=== PATIENT | female | born 2000 | race Caucasian/White ===

== ENCOUNTER 2024-01-26 18:13 | Emergency (ER) | payer BC, SELFPAY ==
[2024-01-26 18:15] VITALS: BP 140/74; PULSE 83; RESP 18; TEMP 36.8; O2SAT 100; BMI 24.7
--- NOTE | 2024-01-26 18:42 | ED_ITS ---
<Statement entered by Monik Garcia DO - 01/26/24 19:15> I was consulted by the MATILDE, and we discussed the complexity of the problems being addressed. I approved the treatment and management plan for this patient's care in the emergency department, thus performing a substantive portion of the medical decision making. Monik Garcia DO Discharge Plan Disposition Patient Disposition: Home, Self-Care Condition: Good Referrals Follow up/Referrals: Gonzalez Crane MD [Physician] - See instructions (Tonsillar pit impaction) La Nena Camarena MD [Primary Care Provider] - See instructions Activity Restrictions/Add. Instructions Additional Instructions/Restrictions: Please call in the morning to make an appointment. Return to ER for any worsening signs or symptoms as needed Clinical Impressions Clinical Impression: Symptomatic tonsillar crypt Discharge ED Provider: Monik Garcia General Adult HPI General Chief complaint: Dental/Oral Stated complaint: Tonsil Stone Time Seen by Provider: 01/26/24 18:23 Mode of Arrival: Ambulatory Source of Information: Patient Limitations: No Limitations Description of Symptoms (Recalled from ER Triage Doc. by RN): tonsil stone History of Present Illness HPI narrative: Patient presents for evaluation of a tonsillar stone. Patient has longstanding history of tonsillar hyperplasia with multiple episodes of strep throat pharyngitis and tonsillar crypt impaction. Patient was recently seen by her PCP and referred to ENT however she presented to the emergency department today for us to remove the tonsillar stone. She denies chest pain fever chills hemoptysis hematochezia melena nausea vomiting diarrhea. [facility] Disclaimer: The information contained in this section may have been updated after the patient was seen, as this information can be updated by other users. Social History (Updated 01/26/24 @ 18:58 by ELICIA Simpson) Smoking Status: Never smoker alcohol intake: never current occupational status: employed Travel in the last 8 weeks: None ROS Obtained: Yes Systems reviewed as appropriate & no additional complaints except as documented Physical Exam General General appearance: alert and in no apparent distress ENT ENT exam: Present normal exam, normal oropharynx, mucous membranes moist and other (Patient has a right tonsil cryptic that is impacted with food. I have removed the visible portion that I can reach with the tools that I have however there remains a considerable amount still impacted in the crypts.) Respiratory Respiratory exam: Present normal lung sounds bilaterally Cardiovascular Cardiovascular exam: Present regular rate and normal rhythm Neurological Exam Neurological exam: Present alert and oriented X3 Medical Decision Making Neo Inquiry Pt receiving controlled substance: No Vital Signs: 01/26/24 18:15 01/26/24 18:55 Temperature 98.3 F 98.3 F Temperature Source Oral Pulse Rate 83 Pulse Rate [Left] 83 Respiratory Rate 18 18 Blood Pressure 140/74 Blood Pressure [Left Arm] 140/74 Blood Pressure Mean [Left Arm] 96 02 Sat by Pulse Oximetry 100 Oxygen Delivery Method Room Air Room Air Medical Decision Narrative: In summary patient is a 23-year-old female who presents to the emergency department for evaluation of impacted tonsillar crypt. Patient is hemodynamically stable upon arrival, afebrile. Physical exam shows a food impaction in the right tonsillar crypt. Differential diagnosis includes abscess versus hard and stone versus food impaction. Patient has no evidence of erythema or exudate thus further workup is deferred. I attempted to manually disimpact her tonsillar crypt with tongue blade and a Q-tip however food impaction is too deep and patient's gag reflex is too strong for me to overcome. Will refer to ear nose and throat for further evaluation. Given this patient is propria for discharge Critical Care Critical Care Time Critical Care Time: No
[2024-01-26 18:55] VITALS: BP 140/74; PULSE 83; RESP 18; TEMP 36.8; O2SAT 100
== END 2024-01-26 18:56 | disposition home or self-care (01) ==
PROVIDERS: Emergency Provider Emergency Medicine; PCP Family Medicine Addiction Medicine
DX: J35.8 Other chronic diseases of tonsils and adenoids (principal)
CPT/HCPCS: 99282

== ENCOUNTER 2024-03-24 20:24 | Emergency (ER) | payer BC, SELFPAY ==
[2024-03-24 20:25] VITALS: BP 131/87; RESP 18; TEMP 36.8; O2SAT 98; BMI 28.0
--- NOTE | 2024-03-24 20:48 | ED_ITS ---
Discharge Plan Disposition Patient Disposition: Home, Self-Care Prescriptions Prescriptions: No Action venlafaxine 75 mg capsule,extended release 24hr PO Patient Comments: Take 1 capsule by mouth every night at bedtime venlafaxine 37.5 mg capsule,extended release 24hr 37.5 mg PO DAILY Patient Comments: Take 1 capsule by mouth every night at bedtime Referrals Follow up/Referrals: La Nena Camarena MD [Primary Care Provider] - See instructions Activity Restrictions/Add. Instructions Additional Instructions/Restrictions: Your COVID flu and strep tests were all negative. Your symptoms are consistent with a viral pharyngeal tonsillitis. As discussed no indication for antibiotics to treat bacterial infection at the moment. You been given long-acting steroids you should continue to take ibuprofen you may take 600 mg 3 times a day as needed with food may also take 1000 mg of Tylenol 3 times a day if you need to for symptoms. Keep your follow-up appointment with your nose and throat doctor and return with any significant worsening symptoms. Clinical Impressions Clinical Impression: Pharyngotonsillitis Print Language Print Language: Citizen Of [place] Discharge ED Provider: Bertha Dennis General Adult HPI General Chief complaint: Dental/Oral Stated complaint: sore throat Time Seen by Provider: 03/24/24 20:42 Mode of Arrival: Ambulatory Source of Information: Patient Limitations: No Limitations Description of Symptoms (Recalled from ER Triage Doc. by RN): Patient reports left tonsil pain that started 2-3 days ago. Denies body aches, denies fevers. Scheduled to have surgery to remove tonsils on the . Patient reports pain 7/10 to left throat. History of Present Illness HPI narrative: Patient is a 23-year-old female presenting with multiple complaints. She states that she has a history of extensive and recurrent tonsillitis and is scheduled to get her tonsils removed on April 13. Evin. She was recently in the emergency department with a tonsillar crypt stone that was removed. States over the last Karmen days she has had worsening left-sided throat/tonsil pain left- sided neck pain and left ear pain. Denies any fevers or chills any other symptoms. Denies any other significant past medical history. Related Data Home Medications ?Medication ?Instructions ?Recorded ?Confirmed venlafaxine 37.5 mg 37.5 mg PO DAILY 01/27/24 01/27/24 capsule,extended release 24 hr venlafaxine 75 mg capsule,extended mg PO 01/27/24 01/27/24 release 24 hr Allergies Allergy/AdvReac Type Severity Reaction Status Date / Time codeine Allergy Mild Verified 01/27/24 12:11 [facility] Disclaimer: The information contained in this section may have been updated after the patient was seen, as this information can be updated by other users. Medical History (Updated 03/24/24 @ 20:47 by Bertha Dennis MD) Recurrent streptococcal tonsillitis Social History (Updated 01/27/24 @ 12:12 by ERICKA Perez) Smoking Status: Current every day smoker smoking status start date: Pt vapes alcohol intake: never current occupational status: employed Travel in the last 8 weeks: None ROS Obtained: Yes All systems reviewed & no additional complaints except as documented Physical Exam General General appearance: alert and in no apparent distress ENT ENT exam: Present TM's normal bilaterally and other (Very mild erythema in the left posterior pharynx and tonsillar region no significant tonsillar swelling exudates trismus asymmetry in the soft tissues etc. no trismus soft tissue the neck is also normal no significant lymphadenopathy) Respiratory Respiratory exam: Present normal lung sounds bilaterally Cardiovascular Cardiovascular exam: Present regular rate Neurological Exam Neurological exam: Present alert and oriented X3 Medical Decision Making Neo Inquiry Pt receiving controlled substance: No Vital Signs: 03/24/24 20:25 Temperature 98.2 F Temperature Source Oral Respiratory Rate 18 Blood Pressure [Right Arm] 131/87 Blood Pressure Mean [Right Arm] 101 Blood Pressure Source [Right Arm] Automatic Cuff Blood Pressure Position [Right Arm] Sitting 02 Sat by Pulse Oximetry 98 Oxygen Delivery Method Room Air Lab Data Lab results reviewed: Yes I reviewed the patient's lab results. Lab Results 03/24/24 20:52: SARS-CoV-2 (PCR) Not detected, Influenza A Untype (PCR) Not detected, Influenza Type B (PCR) Not detected, Group A Strep Rapid Negative Orders (Tests/Meds): ED MEDICATIONS Discontinued Medications Generic Name Dose Route Start Last Admin Trade Name Tonio PRN Reason Stop Dose Admin Dexamethasone 10 mg 03/24/24 20:46 03/24/24 20:56 Dexamethasone 4mg Tablet PO 03/24/24 20:47 10 mg ONCE ONE Administration Ibuprofen 600 mg 03/24/24 20:46 08/22/24 20:56 Ibuprofen 600 Mg Tablet PO 03/24/24 20:47 600 mg ONCE ONE Administration ORDERS Category Date Time Status Rapid PCR Covid and Flu A/B Stat Lab 03/24/24 20:52 Completed Strep Scrn Group A (Rapid) Stat Lab 03/24/24 20:52 Completed Strep Screen Confirmation Stat Micro 03/24/24 20:52 Received Medical Decision Narrative: Well-appearing 23-year-old female with mild pharyngeal tonsillitis on the left side. Most likely viral statistically. Will get a COVID and flu as well as strep test. COVID and flu will not exchange clerk as she has no significant comorbidities. Steroids and ibuprofen have been administered will reassess shortly. Reassessment 936 patient remains very stable COVID flu strep all negative she has been given steroids ibuprofen advised that this would be self-limiting with a viral syndrome to keep her follow-up appoint with ENT and return with any significant worsening of symptoms. Critical Care Critical Care Time Critical Care Time: No
[2024-03-24] MEDS: IBUPROFEN 600 MG TABLET PO (20:56)
[2024-03-24] MEDS: DEXAMETHASONE 4MG TABLET 10 MG PO (20:56)
[2024-03-24 21:04] LABS: Coronavirus 19, PCR Not Detected (NotDetected); Influenza A, PCR Not Detected (NotDetected); Influenza B, PCR Not Detected (NotDetected)
[2024-03-24 21:15] LABS: Strep Scrn Group A (Rapid) Negative (Negative)
[2024-03-24 21:40] VITALS: BP 117/81; PULSE 97; RESP 18; TEMP 36.8; O2SAT 98
== END 2024-03-24 21:42 | disposition home or self-care (01) ==
PROVIDERS: Emergency Provider Student in an Organized Health Care Education/Training Program; PCP Family Medicine Addiction Medicine
DX: J03.90 Acute tonsillitis, unspecified (principal)
CPT/HCPCS: 87430; 87636; 99283; J8540

== ENCOUNTER 2024-04-06 16:16 | Outpatient (CLI) | payer BC, SELFPAY ==
[2024-04-06 17:15] LABS: Urine Pregnancy, HCG Qual. Negative (Negative)
== END 2024-04-06 23:59 | disposition home or self-care (01) ==
LOC: LAB 16:19
PROVIDERS: Visit Provider Otolaryngology
DX: J03.01 Acute recurrent streptococcal tonsillitis (principal); J35.8 Other chronic diseases of tonsils and adenoids
CPT/HCPCS: 81025

== ENCOUNTER 2024-04-14 12:32 | Emergency (ER) | payer BC, SELFPAY ==
[2024-04-14] VITALS (10 sets, daily range): BP systolic 111–140; BP diastolic 57–98; PULSE 76–93; RESP 16–20; TEMP 36.6–36.8; O2SAT 98–100; BMI 28.3
--- NOTE | 2024-04-14 12:34 | PC.NURSE ---
pt reports she is here as a result of increased pain post tonsilectomy. States she has been able to tolerate po liquid but that the pain medication she has from surgery has not been adequate. VS stable @ this time. pt reports last dose of liquid hydrocodone was @0630.
--- NOTE | 2024-04-14 13:00 | PC.NURSE ---
PT WALKED TO NURSES STATION, SHOWED TYPED TEXT MESSAGE TO REQUEST PAIN MEDICATION. INSTRUCTED PT THAT SOON MD SEES PT WE WILL MEDICATE AFTER ORDERS ARE PLACED. PT SHOOK HEAD IN UNDERSTANDING, PT AMBULATORY BACK TO ROOM DR OLEARY RETURNED TO NURSES STATION AND NOTIFIED
--- NOTE | 2024-04-14 13:14 | PC.NURSE ---
RAVI Archuleta called ENT office for pt consult. Waiting for Adore to call back. RICARDO
--- NOTE | 2024-04-14 13:14 | PC.NURSE ---
pt's SO came out asking for help d/t pt bleeding bad . Dr. Garcia and multiple staff members to bedside immediately. Dr. Garcia ordered TXA nebulizer treatment ALEX.
[2024-04-14] MEDS: TRANEXAMIC ACID 1,000 MG in 0.9 % SODIUM CHLORIDE 250 ML 32.5 MG IV (13:15)
--- NOTE | 2024-04-14 13:15 | PC.NURSE ---
DR OLEARY SPEAKING WITH [facility]
--- NOTE | 2024-04-14 13:18 | PC.NURSE ---
pt noted to be producing bloody sputum that has now increased. @ bedside. new orders received. IV access obtained. [facility] on the phone
--- NOTE | 2024-04-14 13:20 | PC.NURSE ---
DR OLEARY SPEAKING WITH DR. DE LA ROSA
--- NOTE | 2024-04-14 13:23 | HMH.EDGENADL ---
Discharge Plan Disposition Patient Disposition: Xfer Short-Term Hosp Condition: Serious Prescriptions Prescriptions: No Action venlafaxine 75 mg capsule,extended release 24hr 75 mg PO DAILY Patient Comments: Take 1 capsule by mouth every night at bedtime venlafaxine 37.5 mg capsule,extended release 24hr 37.5 mg PO DAILY Patient Comments: Take 1 capsule by mouth every night at bedtime ondansetron 4 mg tablet,disintegrating 4 mg PO Q6H PRN (Reason: nausea and vomiting) Qty: 20 0RF prednisone 10 mg tablet 10 mg PO DAILY 4 Days Qty: 4 0RF Tetracaine Lollipops (0.5%) 1 ea lozenge on a handle 1 ea PO Q1H PRN (Reason: pain (scale score 4-6)) 7 Days Qty: 4 2RF Rx Instructions: 0.5% tetracaine lollipops use 1-2 minutes q1h prn hydrocodone-acetaminophen 7.5-325 mg/15 mL solution 15 ml PO Q6H PRN (Reason: pain) 7 Days Qty: 473 0RF hydrocodone-acetaminophen 7.5-325 mg/15 mL solution 15 ml PO Q6H PRN (Reason: pain) Qty: 420 0RF Referrals Follow up/Referrals: Provider,Referral, MD [Primary Care Provider] - See instructions Clinical Impressions Clinical Impression: Post-tonsillectomy hemorrhage Stand Alone Forms Stand Alone Forms: Transfer Record - ED Print Language Print Language: Brazilian Discharge ED Provider: Monik Garcia General Adult HPI General Chief complaint: Recheck/Abnormal Lab/Rx Stated complaint: had tonillectomy yesterday severe pain Time Seen by Provider: 04/14/24 13:16 Mode of Arrival: Ambulatory Source of Information: Patient Limitations: No Limitations Description of Symptoms (Recalled from ER Triage Doc. by RN): post tonsilectomy. c/o increased pain. History of Present Illness HPI narrative: This patient is a 23-year-old female who denies significant past medical history aside from recurrent streptococcal tonsillitis presenting with concern for bleeding after tonsillectomy. Tonsillectomy was yesterday with Dr. Royce kearns at our hospital. Patient states that this morning, she woke up in significant worsening pain, cannot swallow, cannot talk, and had hemoptysis. Shortly after arrival, the patient had significant worsening of bleeding passing a lot of bright red blood and clots. Related Data Home Medications ?Medication ?Instructions ?Recorded ?Confirmed venlafaxine 37.5 mg 37.5 mg PO DAILY 01/27/24 04/13/24 capsule,extended release 24 hr venlafaxine 75 mg capsule,extended 75 mg PO DAILY 01/27/24 04/13/24 release 24 hr Previous Rx's ?Medication ?Instructions ?Recorded Tetracaine Lollipops (0.5%) 1 ea 1 ea PO Q1H PRN pain (scale score 04/13/24 lozenge on a handle 4-6) 7 days #4 ea hydrocodone 7.5 mg-acetaminophen 15 ml PO Q6H PRN pain #420 mL 04/13/24 325 mg/15 mL oral solution hydrocodone 7.5 mg-acetaminophen 15 ml PO Q6H PRN pain 7 days #473 04/13/24 325 mg/15 mL oral solution mL ondansetron 4 mg disintegrating 4 mg PO Q6H PRN nausea and 04/13/24 tablet vomiting #20 tabs prednisone 10 mg tablet 10 mg PO DAILY 4 days #4 tabs 04/13/24 Allergies Allergy/AdvReac Type Severity Reaction Status Date / Time No Known Allergies Allergy Verified 04/13/24 12:11 [facility] Disclaimer: The information contained in this section may have been updated after the patient was seen, as this information can be updated by other users. Medical History Acute recurrent tonsillitis Recurrent streptococcal tonsillitis Surgical History [place] teeth removed History of colonoscopy History of carpal tunnel surgery of left wrist History of carpal tunnel surgery of right wrist Family History Other No significant family history Social History Smoking Status: Current every day smoker smoking status start date: Pt vapes alcohol intake: never substance use type: denies use current occupational status: employed Travel in the last 8 weeks: None ROS Obtained: Yes All systems reviewed & no additional complaints except as documented Physical Exam General General appearance: alert and anxious Comment: Anxious appearing, panicking, tearful Head Head exam: atraumatic and normocephalic Eye Eye exam: Present normal appearance, PERRL and EOMI ENT ENT exam: Present mucous membranes moist, normal external ear exam and other (Bleeding from the posterior oropharynx, difficulty visually which side given poor cooperation with exam. Bilateral epistaxis) Neck Neck exam: Present normal inspection, full ROM and trachea midline; Absent tenderness Chest Chest inspection: Present normal inspection and symmetric chest wall rise; Absent tenderness Respiratory Respiratory exam: Present normal lung sounds bilaterally; Absent respiratory distress, wheezes, stridor or accessory muscle use Cardiovascular Cardiovascular exam: Present regular rate and normal rhythm Abdominal Exam Abdominal exam: Present soft; Absent distention, tenderness or guarding Extremities Exam Extremities exam: Present normal inspection, full ROM and normal capillary refill; Absent tenderness or edema Back Exam Back exam: Present normal inspection and full ROM; Absent tenderness Neurological Exam Neurological exam: Present alert, oriented X3, CN II-XII intact and normal gait; Absent motor sensory deficit Psychiatric Psychiatric exam: Present anxious Skin Skin exam: Present warm and dry Medical Decision Making Medical Records Medical records reviewed: Yes I reviewed the patient's medical records. Neo Inquiry Pt receiving controlled substance: No Vital Signs: 04/14/24 12:34 04/14/24 13:00 04/14/24 13:19 Temperature 98.2 F 97.9 F Temperature Source Oral Oral Pulse Rate 77 88 Pulse Rate [Right] 79 Respiratory Rate 16 18 20 Blood Pressure 111/57 L 111/57 L Blood Pressure [Right Arm] 127/78 Blood Pressure Mean [Right Arm] 94 02 Sat by Pulse Oximetry 98 98 98 Oxygen Delivery Method Room Air Room Air Room Air 04/14/24 13:23 04/14/24 13:30 Temperature Temperature Source Pulse Rate 88 Pulse Rate [Right] 93 H Respiratory Rate 18 20 Blood Pressure 131/98 H Blood Pressure [Right Arm] 134/89 Blood Pressure Mean [Right Arm] 104 02 Sat by Pulse Oximetry 100 100 Oxygen Delivery Method Room Air Room Air Lab Data Lab results reviewed: Yes I reviewed the patient's lab results. Lab Results 04/14/24 13:23: WBC 11.4 H, RBC 5.47 H, Hgb 15.4, Hct 48.4 H, MCV 88.6, MCH 28.2, MCHC 31.8, RDW 13.1, Plt Count 356, MPV 8.2, Neut % (Auto) 76.9, Lymph % (Auto) 17.4, [place] % (Auto) 5.2, Eos % (Auto) 0.2, Baso % (Auto) 0.3, Neut # (Auto) 8.7 H, Lymph # (Auto) 2.0, [place] # (Auto) 0.6, Eos # (Auto) 0.0, Baso # (Auto) 0.0, PT 11.7, INR 1.05, APTT 27.6, Sodium 142, Potassium 3.7, Chloride 106, Carbon Dioxide 29, Anion Gap 10.7, BUN 7, Creatinine 0.60, Estimated Creat Clear 170, Estimated GFR 126, Est GFR ( Amer) 153, Glucose 95, Calcium 9.5, Total Bilirubin 0.7, AST 27, ALT 21, Alkaline Phosphatase 63, Total Protein 8.1, Albumin 4.6, Globulin 3.5 H, Albumin/Globulin Ratio 1.3 04/14/24 13:23 04/14/24 13:23 Orders (Tests/Meds): ED MEDICATIONS Generic Name Dose Route Start Last Admin Trade Name Freq PRN Reason Stop Dose Admin Lactated Ringer's 1,000 mls @ 999 mls/hr 04/14/24 13:16 04/14/24 13:26 Lactated Ringer's 1000 Ml Bag IV 04/14/24 14:16 999 mls/hr .Q1H1M ONE Administration Tranexamic Acid 1,000 mg 04/14/24 13:58 Tranexamic Acid 1,000 Mg/10 Ml Vial IVP 04/14/24 13:59 ONCE ONE Discontinued Medications Generic Name Dose Route Start Last Admin Trade Name Freq PRN Reason Stop Dose Admin Acetaminophen 1,000 mg 04/14/24 13:16 04/14/24 13:26 Acetaminophen 1,000mg/100ml Vial IV 04/14/24 13:17 1,000 mg ONCE ONE Administration Dexamethasone Sodium Phosphate 10 mg 04/14/24 13:25 04/14/24 13:30 Dexamethasone 4mg/Ml 1ml Vial IV 04/14/24 13:26 10 mg ONCE ONE Administration Tranexamic Acid 1,000 mg/ 260 mls @ 32.5 mls/hr 04/14/24 13:25 04/14/24 13:15 Sodium Chloride IV 04/14/24 13:26 32.5 mls/hr ONCE ONE Administration Morphine Sulfate 2 mg 04/14/24 13:25 04/14/24 13:30 Morphine 2mg/Ml Syringe IV 04/14/24 13:26 2 mg ONCE ONE Administration Ondansetron HCl 4 mg 04/14/24 13:16 04/14/24 13:26 Ondansetron 4mg/2ml Vial IV 04/14/24 13:17 4 mg ONCE ONE Administration ORDERS Category Date Time Status Activated Partial Thrombo Time Stat Lab 04/14/24 13:23 Completed Complete Blood Count Auto Diff Stat Lab 04/14/24 13:23 Completed Comprehensive Metabolic Panel Stat Lab 04/14/24 13:23 Completed PT INR [Prothrombin Time INR] Stat Lab 04/14/24 13:23 Completed Medical Decision Narrative: In summary, this patient is a 23-year-old female presenting to the Emergency Department for evaluation of bleeding after tonsillectomy. Differential diagnoses considered include but are not limited to oozing from scab, venous bleeding, epistaxis, arterial bleed . Ruling out the most morbid conditions drove assessment. I reviewed patient's past medical records and noted uncomplicated tonsillectomy. Workup included CBC, CMP, and coags. IV fluid resuscitation was started with a liter bolus of IV fluids and patient was given IV morphine, acetaminophen, and dexamethasone for symptomatic improvement of pain. She was given TXA neb for bleeding. I had an interactive discussion with Dr. Villatoro who advised to give the TXA neb as well as the dexamethasone. Patient did have initial control after the TXA neb, however then she started having profuse bleeding again from both her nose and mouth. Given this, second TXA neb was administered. We reached out to Dr. Crane as well as [facility] and they advised transfer to [facility] to the ED. Flight crew was contacted to arrange transfer given her recurrent bleeding. We did again achieve hemostasis with the second TXA neb.. She remained hemodynamically stable throughout ED stay. She was stable at time of transfer. Critical Care Critical Care Time Critical Care Time: Yes Attestation: On 04/14/24, the high probability of a clinically significant, sudden or life threatening deterioration of the following system(s) required my full and direct attention, intervention and personal management. The time I documented below is in addition to time spent performing reported procedures but includes the following listed in this critical care notation. Total Time Total Critical Care Time: 40
[2024-04-14] MEDS: ACETAMINOPHEN 1,000MG/100ML VIAL 1000 MG IV (13:26)
[2024-04-14] MEDS: ONDANSETRON 4MG/2ML VIAL 4 MG IV (13:26)
[2024-04-14] MEDS: LACTATED RINGERS 1000ML 1,000 ML 999 ML IV (13:26)
[2024-04-14] MEDS: DEXAMETHASONE 4MG/ML 1ML VIAL 10 MG IV (13:30)
[2024-04-14] MEDS: MORPHINE 2MG/ML SYRINGE 2 MG IV (13:30)
[2024-04-14 13:37] LABS: Basophils % 0.3 % (0.1-2.0); Eosinophils % 0.2 % (0.1-12.0); Hematocrit 48.4 % (37.0-47.0); Hemoglobin 15.4 g/dL (12.2-16.2); Lymphocytes % 17.4 % (10-50); Mean Corpuscular HGB Conc 31.8 g/dL (31.8-35.4); Mean Corpuscular Hemoglobin 28.2 pg (27.0-31.2); Mean Corpuscular Volume 88.6 fl (81-99); Mean Platelet Volume 8.2 fl (7.4-10.4); Monocytes # 0.6 K/mm3 (0.1-1.0); Monocytes % 5.2 % (1.7-9.3); Neutrophils # 8.7 K/mm3 (1.8-7.8); Neutrophils % 76.9 % (37.0-80.0); Platelet Count 356 K/mm3 (142-424); Red Blood Count 5.47 M/mm3 (4.20-5.40); Red Cell Distribution Width 13.1 % (11.5-17.5); White Blood Count 11.4 K/mm3 (4.8-10.8)
--- NOTE | 2024-04-14 13:39 | PC.NURSE ---
TRISTON DILL AT BEDSIDE
[2024-04-14 13:42] LABS: Activated Partial Thrombo Time 27.6 seconds (22.8-30.6); INR 1.05 (0.9-1.1); Prothrombin Time 11.7 seconds (10.1-12.5)
[2024-04-14 13:44] LABS: Alanine Aminotransferase 21 U/L (12-78); Albumin Level 4.6 g/dl (3.5-5.0); Albumin/Globulin Ratio 1.3 (1.1-1.8); Alkaline Phosphatase 63 U/L (38-126); Anion Gap 10.7 mEq/L (5-15); Aspartate Amino Transferase 27 U/L (14-36); Bilirubin,Total 0.7 mg/dl (0.2-1.3); Blood Urea Nitrogen 7 mg/dl (7-17); Calcium 9.5 mg/dl (8.4-10.2); Carbon Dioxide 29 mmol/L (22.0-30.0); Chloride 106 mmol/L (98-107); Creatinine Clearance Estimated 170 mL/min (50-200); Estimated Glomerular Filt Rate 126 ml/min (>60); GFR (African American) 153 ML/MIN (>60); Globulin 3.5 g/dL (1.3-3.2); Glucose 95 mg/dl (74-100); Potassium 3.7 mmoL/L (3.5-5.1); Sodium 142 mmol/L (136-145); Total Protein,Serum 8.1 g/dl (6.3-8.2)
--- NOTE | 2024-04-14 14:04 | PC.NURSE ---
I spoke with pts father per her request. He will meet her @ [facility]. planned route is [facility]
[2024-04-14] MEDS: TRANEXAMIC ACID 1,000 MG/10 ML VIAL 1000 MG IVP (14:11)
--- NOTE | 2024-04-14 14:14 | PC.NURSE ---
Called [employer] [facility] to see abput flight status and they just lifted and had a 22 min. ETA House superviser notified
[2024-04-14] MEDS: LORazepam 2MG/ML VIAL 0.5 MG IV (14:27)
== END 2024-04-14 14:53 | disposition short-term general hospital (02) ==
PROVIDERS: Emergency Provider Emergency Medicine
DX: J95.830 Postprocedural hemorrhage of a respiratory system organ or structure following a respiratory system procedure (principal); R07.0 Pain in throat
CPT/HCPCS: 80053; 85025; 85610; 85730; 96361; 96374; 96375; 99285; J0131; J1100; J2060; J2270; J2405; J7120

== ENCOUNTER 2024-05-24 21:07 | Emergency (ER) | payer SELFPAY ==
[2024-05-24 21:09] VITALS: BP 124/78; PULSE 88; RESP 16; TEMP 36.8; O2SAT 98; BMI 21.2
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
[2024-05-24] MEDS: DEXAMETHASONE 4MG TABLET 10 MG PO (21:37)
[2024-05-24] MEDS: METHOCARBAMOL 500MG TABLET 1500 MG PO (21:39)
[2024-05-24 22:36] VITALS: BP 129/78; PULSE 85; RESP 16; TEMP 36.8; O2SAT 98
== END 2024-05-24 22:37 | disposition home or self-care (01) ==
PROVIDERS: Emergency Provider Emergency Medicine
DX: S16.1XXA Strain of muscle, fascia and tendon at neck level, initial encounter (principal); M54.2 Cervicalgia; R07.82 Intercostal pain; M25.512 Pain in left shoulder; V89.2XXA Person injured in unspecified motor-vehicle accident, traffic, initial encounter; Y93.89 Activity, other specified; Y92.9 Unspecified place or not applicable
CPT/HCPCS: 99282; 99283; J8540